=== PATIENT | female | born 1930 | race Caucasian/White ===

== ENCOUNTER 2019-05-21 15:21 | Observation (INO) ==
[2019-05-21 16:21] LABS: Basophils % 0.5 % (0.0-0.8); Eosinophils # 0.1 10*3/uL (0.0-0.87); Eosinophils % 1.7 % (0.00-10.9); Hematocrit 36.8 VOL% (35.7-47.0); Immature Granulocytes % 0.5 %; Immature Granulocytes Absolute 0.03 #; Lymphocytes # 1.8 10*3/uL (1.4-4.0); Lymphocytes % 27.7 % (21.3-54.2); Mean Corpuscular HGB Conc 32.6 GM/DL (32-36); Mean Corpuscular Volume 86.2 FL (87-102); Mean Platelet Volume 9.2 FL (9.6-12.0); Monocytes % 8.2 % (1.7-12.7); Neutrophils % 61.4 % (38.7-73.9); Platelet Count 281 T/CUMM (130-400); Red Blood Count 4.27 MC/CUMM (3.8-5.5); Red Cell Distribution Width 13.4 % (9.3-17.3); White Blood Count 6.5 T/CUMM (4-12)
[2019-05-21 16:48] LABS: Alanine Aminotransferase 15 U/L (13-56); Albumin 3.9 G/DL (3.4-5.0); Alkaline Phosphatase 57 U/L (45-117); Aspartate Amino Transferase 13 U/L (0-37); Bilirubin,Total < 0.39 MG/DL (0.2-1.0); Blood Urea Nitrogen 21 MG/DL (7-18); Calcium 8.9 MG/DL (8.5-10.1); Estimated Glom Filtration Rate 33 ML/MIN; Glucose 181 MG/DL (74-106); Osmolality,Calculated 265.9 MOS/KG (273-304); Total Protein 7.2 G/DL (6.4-8.3)
[2019-05-21] MEDS ORDERED: SODIUM CHLORIDE 0.9% 1,000 ML IV STA (17:21)
[2019-05-21 17:46] LABS: Apearance,Urine CLEAR (Clear); Bacteria,Urine Many /HPF (Few); Bilirubin,Urine Negative (Negative); Blood, Urine Small mg/dL (Negative); Glucose,Urine (UA) Negative (Negative); Ketones,Urine Negative (Negative); Mucus,Urine Occasional /LPF (Occasional); Nitrite,Urine Negative (Negative); Protein,Urine Negative; RBC,Urine 1 /HPF (0-4); Squamous Epithelial Cell,Urine Occasional /HPF (0-10); Urine Color Straw (Yellow); Urine Specific Gravity 1.003 (1.001-1.035); Urine Urobilinogen < 2.0 EU/DL (0.2-1.0); WBC,Urine 1 /HPF (0-6)
[2019-05-21] MEDS ORDERED: LABETALOL 20 MG/4 ML SYRINGE IV PRN (20:14)
[2019-05-21] MEDS ORDERED: GLUCAGON 1 MG VIAL IM PRN (20:14)
[2019-05-21] MEDS ORDERED: DEXTROSE 10% 250 ML BAG IV PRN (20:14)
[2019-05-21] MEDS ORDERED: ASPIRIN EC 81 MG TABLET PO SCH (20:30)
[2019-05-21] MEDS ORDERED: ASPIRIN CHEW 81 MG TABLET PO ONE (20:30)
[2019-05-21] MEDS ORDERED: ATORVASTATIN 80 MG TABLET PO SCH (21:00)
[2019-05-21] MEDS ORDERED: ENOXAPARIN 30 MG/0.3 ML SYRINGE SUBCUT SCH (21:00)
[2019-05-21] MEDS: INSULIN REGULAR 100 UNIT/ML SUBCUT SCH (22:59)
[2019-05-21] MEDS: SODIUM CHLORIDE 0.9% 1,000 ML IV SCH (22:59)
[2019-05-22 06:54] LABS: Basophils % 0.5 % (0.0-0.8); Eosinophils # 0.1 10*3/uL (0.0-0.87); Eosinophils % 1.7 % (0.00-10.9); Hematocrit 34.1 VOL% (35.7-47.0); Hemoglobin 10.9 GM/DL (12.0-16.0); Immature Granulocytes % 0.3 %; Immature Granulocytes Absolute 0.02 #; Lymphocytes # 1.4 10*3/uL (1.4-4.0); Lymphocytes % 23.2 % (21.3-54.2); Mean Corpuscular Volume 86.8 FL (87-102); Mean Platelet Volume 9.2 FL (9.6-12.0); Monocytes % 9.9 % (1.7-12.7); Neutrophils % 64.4 % (38.7-73.9); Platelet Count 232 T/CUMM (130-400); Red Blood Count 3.93 MC/CUMM (3.8-5.5); Red Cell Distribution Width 13.3 % (9.3-17.3); White Blood Count 5.9 T/CUMM (4-12)
[2019-05-22 07:23] LABS: Calcium 8.7 MG/DL (8.5-10.1); Osmolality,Calculated 274.7 MOS/KG (273-304); Risk Ratio 6.13; VLDL CHOLESTEROL 47.6 MG/DL
[2019-05-22] MEDS: INSULIN REGULAR 100 UNIT/ML SUBCUT SCH ×4 (08:37→21:13)
[2019-05-22] MEDS: CLOPIDOGREL 75 MG TABLET PO SCH (09:12)
[2019-05-22] MEDS: PANTOPRAZOLE 40 MG TABLET PO SCH (09:13)
[2019-05-22] MEDS: ASPIRIN EC 81 MG TABLET PO SCH (09:14)
[2019-05-22] MEDS: INSULIN GLARGINE 100 UNIT/ML SUBCUT SCH (09:15)
[2019-05-22] MEDS: SODIUM CHLORIDE 0.9% 1,000 ML IV SCH (17:37)
[2019-05-22] MEDS ORDERED: ROSUVASTATIN 20 MG TABLET PO SCH (21:00)
[2019-05-23 07:54] VITALS: BP 146/71
[2019-05-23] MEDS: INSULIN REGULAR 100 UNIT/ML SUBCUT SCH (10:14)
[2019-05-23] MEDS: INSULIN GLARGINE 100 UNIT/ML SUBCUT SCH (10:16)
[2019-05-23] MEDS: CLOPIDOGREL 75 MG TABLET PO SCH (10:17)
[2019-05-23] MEDS: PANTOPRAZOLE 40 MG TABLET PO SCH (10:18)
[2019-05-23] MEDS: ASPIRIN EC 81 MG TABLET PO SCH (10:18)
== END 2019-05-23 12:00 | disposition home or self-care (01) ==
LOC: N.ED 15:21 → N.EDINP 15:21 → N.2W 20:27
PROVIDERS: ADMIT Internal Medicine; ATTEND Internal Medicine